=== PATIENT | female | born 1985 | race Caucasian/White ===

== ENCOUNTER 2016-10-09 06:13 | Emergency (ER) | payer BC ==
[~2016-10-09] VITALS: Ht 172.7 cm; Wt 68.0 kg
[~2016-10-09 06:13] MED LIST: CIPR500T89 PO; FLAG500T PO; PROBCAP4 PO
[2016-10-09] MEDS ORDERED: PENT500C PO (06:38)
[2016-10-09] MEDS ORDERED: FOLI5INJ2 PO (06:38)
[2016-10-09] MEDS ORDERED: NS 1,000 ML IV ONE ×2 (07:00→07:45)
[2016-10-09 07:36] LABS: BASO % 0.1 % (0.0-1.0); EOS % 0.3 % (0.0-3.0); LARGE UNSTAINED CELL % 0.3 % (0.0-4.0); LYMPH # 0.3 K/mm3 (1.5-4.5); LYMPH % 2.2 % (24.0-44.0); MEAN CORPUSCULAR HEMOGLOBIN 29.9 pg (27.0-33.0); MEAN CORPUSCULAR VOLUME 87.9 fl (80.0-96.0); MONO # 0.3 K/mm3 (0.0-0.8); MONO % 2.5 % (0.0-5.0); NEUTROPHILS # 10.9 K/mm3 (1.8-7.7); NEUTROPHILS % 94.7 % (36.0-66.0); PLATELET COUNT, AUTOMATED 239 k/mm3 (150-450); WHITE BLOOD COUNT 11.5 K/mm3 (4.0-10.0)
[2016-10-09] MEDS ORDERED: METOCLOPRAMIDE INJ 10MG/2ML VIAL (J2765) IV ONE (07:45)
[2016-10-09 07:52] LABS: ALBUMIN 4.4 GM/DL (3.2-5.2); ALBUMIN/GLOBULIN RATIO 1.33 (1.00-1.93); ALKALINE PHOSPHATASE 44 U/L (45-117); ALT/SGPT 20 U/L (12-78); AMYLASE 38 U/L (25-115); ANION GAP 10 MEQ/L (8-16); AST/SGOT 15 U/L (15-37); BILIRUBIN,DIRECT 0.2 MG/DL (0.0-0.2); BILIRUBIN,TOTAL 0.8 MG/DL (0.2-1.0); BLOOD UREA NITROGEN 12 MG/DL (7-18); CALCIUM LEVEL 8.8 MG/DL (8.5-10.1); CARBON DIOXIDE LEVEL 23 MEQ/L (21-32); CHLORIDE LEVEL 108 MEQ/L (98-107); CREATININE FOR GFR 0.94 MG/DL (0.55-1.02); GLOMERULAR FILTRATION RATE > 60.0 (>60); GLUCOSE, FASTING 114 MG/DL (70-105); HCG, SERUM QUANTITATIVE 66 MIU/ML; POTASSIUM SERUM 4.3 MEQ/L (3.5-5.1); SODIUM LEVEL 141 MEQ/L (136-145); TOTAL PROTEIN 7.7 GM/DL (6.4-8.2)
[2016-10-09] MEDS ORDERED: ACETAMINOPHEN TAB 650MG DOSE (2X325MG) PO ONE (08:45)
--- NOTE | 2016-10-09 09:47 | REP ---
OBSTETRIC SONOGRAPHY: HISTORY: HCG level 66. Irregular menstrual bleeding. FINDINGS: Transabdominal and transvaginal scanning are performed. Uterus is normal in size and empty. Its dimensions of 6.9 x 2.7 x 4.4 cm. Endometrial echo is somewhat thickened although fairly homogeneous, measuring 1.1 cm. No intrauterine gestational sac is seen. No free fluid is seen in the cul-de-sac. Normal ovaries are observed bilaterally. The right ovary measures 2.7 x 1.7 x 2.8 cm. Left ovary dimensions are 4.6 x 2.9 x 3.1 cm. There is a 1.7 cm cystic area in the left ovary may be a corpus luteum. IMPRESSION: Normal size empty uterus with a somewhat thickened endometrium. No IUP seen. No adnexal mass or free fluid. Nonspecific sonographic findings. Clinical and possibly sonographic followup advised. Signed by Juno Tam MD 10/09/2016 05:19 P
[2016-10-09] MEDS ORDERED: NS 500 ML IV ONE (10:30)
[2016-10-09] MEDS ORDERED: ZOFR4TAB3 PO (11:03)
[2016-10-09 11:22] VITALS: BP 101/56
== END 2016-10-09 11:23 | disposition home or self-care (01) ==
LOC: M ED 10:35
DX: O99.89 Other specified diseases and conditions complicating pregnancy, childbirth and the puerperium (principal); R11.2 Nausea with vomiting, unspecified; R19.7 Diarrhea, unspecified; Z87.19 Personal history of other diseases of the digestive system; Z79.899 Other long term (current) drug therapy
CPT/HCPCS: 76801; 76817; 80048; 80076; 81001; 82150; 83690; 84702; 85025; 87086; 93976; 96374; 99283; J2765

== ENCOUNTER → 2016-10-11 | Outpatient (CLI) | payer BC ==
[~2016-10-11] MED LIST changes: +FOLI5INJ2 PO; +PENT500C PO; +ZOFR4TAB3 PO
== END ==
LOC: M LAB 13:43
PROVIDERS: ATTEND Family Medicine
DX: Z36 Encounter for antenatal screening of mother (principal); Z3A.01 Less than 8 weeks gestation of pregnancy

== ENCOUNTER → 2016-10-16 | Outpatient (REF) | payer BC | LOC: M SFHCCLAY 11:21 | PROVIDERS: ATTEND Family Medicine | DX: Z3A.01 Less than 8 weeks gestation of pregnancy (principal); R11.2 Nausea with vomiting, unspecified; Z53.8 Procedure and treatment not carried out for other reasons ==

== ENCOUNTER → 2016-11-17 | Outpatient (REF) | payer BC | LOC: M SFHCCLAY 16:29 | PROVIDERS: ATTEND Family Medicine | DX: D22.61 Melanocytic nevi of right upper limb, including shoulder (principal) ==

== ENCOUNTER → 2016-12-29 | Outpatient (REF) | payer BC | LOC: M LAB REF 10:59 | PROVIDERS: ATTEND Advanced Practice Midwife | DX: Z36 Encounter for antenatal screening of mother (principal); Z3A.00 Weeks of gestation of pregnancy not specified ==

== ENCOUNTER → 2017-01-16 | Outpatient (CLI) | payer BC ==
--- NOTE | 2017-01-16 07:48 | REP ---
Clinical: Anatomical evaluation. Comparison: 10/09/2016 . Findings: Examination demonstrates a single live intrauterine in cephalic presentation. motion is identified by technologist. Placenta is noted anteriorly and grade zero without evidence for placenta previa or abruption. Amniotic fluid volume is normal. Cervix measures 3.6 cm in length and appears closed. No evidence for nuchal cord. Gestational age by LMP 18 weeks 1 day with MARTIR 06/18/2017 . Gestational age by current measurements 18 weeks 4 days with MARTIR 06/15/2017 . FHR equals 136 beats per minute. BPD 4.1 cm 18 weeks 4 days HC 15.3 cm 18 weeks 2 days AC 13.3 cm 18 weeks 6 days FL 2.7 cm 18 weeks 2 days HL 2.8 cm 19 weeks 1 day HC/AC ratio 1.15 Estimated weight 244 grams ( 63rd percentile). Anatomical assessment demonstrates normal structures including cranium, choroid plexus, cavum, cerebellum/posterior fossa, facial features, lungs, four-chamber heart/ventricular outflow tracts, diaphragm, stomach, cord insertion/three-vessel cord, kidneys/bladder, spine, and extremities. Impression: Single live intrauterine in cephalic presentation demonstrating appropriate interval growth. Anatomical assessment is complete and normal. Signed by Wenceslao Mendoza MD 01/16/2017 07:40 A
== END ==
LOC: M RAD 06:19
PROVIDERS: ATTEND Advanced Practice Midwife
DX: Z34.82 Encounter for supervision of other normal pregnancy, second trimester (principal); Z3A.18 18 weeks gestation of pregnancy

== ENCOUNTER → 2017-03-31 | Outpatient (CLI) | payer BC ==
[~2017-03-31] MED LIST changes: +CIPR-249 PO; -CIPR500T89 PO
[2017-03-31 13:51] LABS: MEAN CORPUSCULAR HEMOGLOBIN 30.4 pg (27.0-33.0); MEAN CORPUSCULAR HGB CONC 34.2 g/dl (32.0-36.5); RED CELL DISTRIBUTION WIDTH 12.1 % (11.5-14.5); WHITE BLOOD COUNT 12.4 K/mm3 (4.0-10.0)
== END ==
LOC: M SMT 10:43
PROVIDERS: ATTEND Advanced Practice Midwife
DX: Z36 Encounter for antenatal screening of mother (principal); Z3A.00 Weeks of gestation of pregnancy not specified
CPT/HCPCS: 36415; 82950; 85027; 86803; 86850; 86900; 86901; J2790

== ENCOUNTER → 2017-04-07 | Outpatient (CLI) | payer BC | LOC: M LAB 08:04 | PROVIDERS: ATTEND Advanced Practice Midwife | DX: Z36 Encounter for antenatal screening of mother (principal); Z3A.00 Weeks of gestation of pregnancy not specified ==

== ENCOUNTER → 2017-05-20 | Outpatient (REF) | payer BC | LOC: M LAB REF 12:44 | PROVIDERS: ATTEND Obstetrics & Gynecology | DX: Z36.85 Encounter for antenatal screening for Streptococcus B (principal); Z3A.00 Weeks of gestation of pregnancy not specified ==

== ENCOUNTER 2017-06-12 02:35 | Inpatient (IN) | payer BC ==
[~2017-06-12] VITALS: Ht 172.7 cm; Wt 87.0 kg
[2017-06-12] VITALS (35 sets, daily range): BP systolic 103–144; BP diastolic 56–83
[2017-06-12] MEDS ORDERED: [UNRECOGNIZED DRUG - CODE] PO (04:37)
[2017-06-12 04:47] LABS: MEAN CORPUSCULAR HEMOGLOBIN 29.9 pg (27.0-33.0); MEAN CORPUSCULAR HGB CONC 33.7 g/dl (32.0-36.5); MEAN CORPUSCULAR VOLUME 88.7 fl (80.0-96.0); PLATELET COUNT, AUTOMATED 263 10^3/uL (150-450); RED CELL DISTRIBUTION WIDTH 12.2 % (11.5-14.5); WHITE BLOOD COUNT 16.3 10^3/uL (4.0-10.0)
--- NOTE | 2017-06-12 05:10 | HPE ---
DATE OF ADMISSION: 06/12/2017 HISTORY OF PRESENT ILLNESS: A 31-year-old 1, para 0 female at 39 and 1/7 weeks gestation by last menstrual period (LMP) consistent with an 11-week ultrasound, estimated date of confinement (EDC) 06/18/2017, presents with spontaneous loss of fluid per vagina at 1 a.m. the morning of admission. Her contractions began to increase shortly thereafter. She denies vaginal bleeding. The leakage continued. COURSE: The patient initiated care at 15 weeks gestation on 12/29/2016. Her initial blood pressure was 120/68, weight 161 pounds. Her course was unremarkable. MEDICAL HISTORY: Ulcerative colitis. SURGICAL HISTORY: Colonoscopy. ALLERGIES: No known drug allergies. MEDICATIONS: 1. Pentasa 500 mg. 2. vitamins. SOCIAL HISTORY: The patient is . She denies cigarettes, alcohol or drug use. She lives in [place]. FAMILY HISTORY: Noncontributory. PHYSICAL EXAMINATION: VITAL SIGNS: Blood pressure 118/72. GENERAL: She appears mildly uncomfortable. HEAD/NECK: Normal. LUNGS: Clear. HEART: Regular rate and rhythm. ABDOMEN: Nontender, gravid. heart tones category one. STERILE VAGINAL EXAM: Grossly ruptured and clear fluid noted. Nitrazine positive. Cervix is 3 cm, 100% effaced, -2 station. Vertex. Contractions every 3-4 minutes. EXTREMITIES: Nontender. LABORATORY DATA: Blood type A negative. Rubella immune. RPR nonreactive. GBS negative on 05/20/2017. ASSESSMENT: A 31-year-old 1 para 0 female at 39-1/7 weeks who presents with spontaneous rupture of membranes in labor. The patient is admitted on 06/12/2017.
[2017-06-12] MEDS ORDERED: FENTANYL 2MCG/ML ROPIVACAINE 0.2% IN 0.9% NACL 200ML IVBAG As Ordered ONE (05:33)
[2017-06-12] MEDS ORDERED: REFRIGERATOR IV KEYS XX PRN (06:00)
[2017-06-12] MEDS ORDERED: FENTANYL/ROPIVACAINE/NACL BAG 200 ML EPIDURAL SCH (06:00)
[2017-06-12] MEDS ORDERED: diphenhydrAMINE INJ 50MG/ML VIAL (J1200) IV PRN (06:00)
[2017-06-12] MEDS ORDERED: LACTATED RINGER'S 1000 ML IV PRN (06:00)
[2017-06-12] MEDS ORDERED: ePHEDrine SULFATE 25 MG/5 ML(5MG/ML) SYRINGE IV PRN (06:00)
[2017-06-12] MEDS ORDERED: EPIDURAL/PCA KEYS XX PRN (06:00)
[2017-06-12] MEDS ORDERED: NALOXONE INJ 0.4 MG/1 ML VIAL (J2310) IV PRN (06:00)
[2017-06-12] MEDS ORDERED: EPIDURAL COMMENT XX SCH (06:00)
[2017-06-12] MEDS ORDERED: ONDANSETRON 4MG/2ML VIAL (J2405) IV PRN (06:00)
[2017-06-12] MEDS: PRENATAL VITAMINS CHEWABLE TABLET PO SCH (09:00)
[2017-06-12] MEDS ORDERED: OXYTOCIN 30 UNITS IN 0.9% NaCl 500ML IV BAG (J2590) As Ordered ONE (10:11)
[2017-06-12] MEDS ORDERED: OXYTOCIN DRIP 30 UNITS in APPROPRIATE DILUENT 1 EA IV SCH (11:37)
[2017-06-12] MEDS ORDERED: DIBUCAINE 1% OINTMENT 30GM TOP PRN (11:45)
[2017-06-12] MEDS ORDERED: MEASLES,MUMPS,RUBELLA VACCINE INJ (MMR-II) (90707) SC SCH (11:45)
[2017-06-12] MEDS ORDERED: ACETAMINOPHEN 500 MG TAB PO PRN (11:45)
[2017-06-12] MEDS ORDERED: RHOGAM 300 MCG (1500 IU) INJ (J2790) IM SCH (11:45)
[2017-06-12] MEDS ORDERED: ANUSOL HC CREAM 30GM TOP PRN (11:45)
[2017-06-12] MEDS ORDERED: DOCUSATE SODIUM 100 MG CAP PO PRN (11:45)
[2017-06-12] MEDS ORDERED: IBUPROFEN 800 MG TAB PO PRN (11:45)
[2017-06-12] MEDS ORDERED: METHYLERGONOVINE MALEATE 0.2 MG TAB PO PRN (11:45)
[2017-06-12] MEDS ORDERED: MOM 30ML SUSPENSION UDC PO PRN (11:45)
--- NOTE | 2017-06-12 16:55 | PAIN ---
DATE: 06/12/2017 TIME OF : 10:35. GENDER: Female. SCORES: 8 and 9. WEIGHT: 7 pounds 9 ounces, or 3440 grams. ANESTHESIA: Epidural. LACERATIONS: First-degree midline laceration with a right labial laceration. ESTIMATED BLOOD LOSS: 300 mL. COUNTS: There were five laparotomy sponges accounted for prior to and after delivery. One sharp removed from the delivery field. DELIVERY NOTE: On 06/12/2017 at 10:35, Mrs. English, a 31-year-old 1, now para 1, had a spontaneous vaginal delivery of a live-born female infant, scores 8 and 9. Weight was 7 pounds 9 ounces, 3440 grams. Head was delivered left occiput anterior (KIMBERLY) followed by delivery of right anterior shoulder, left posterior shoulder, and corpus. was then handed to mother with a good cry. Cord was clamped times two and was cut. Cord blood was then obtained. Placenta was then drained and delivered grossly intact. A pre-mix bag of 500 mL of normal saline with 30 units of Pitocin was then bolused along with uterine massage until the uterus was firm. On inspection there was a first- degree laceration with a right labial laceration,both repaired with 3-0 Vicryl Rapide. On reinspection, cervix, vagina, and perineum were grossly intact, hemostatic. Mother and baby are recovering in stable condition. The couple has decided to name their daughter MARGARITA
[2017-06-13 05:47] VITALS: BP 129/70
[2017-06-13] MEDS: PRENATAL VITAMINS CHEWABLE TABLET PO SCH (08:40)
[2017-06-13 18:27] VITALS: BP 110/61
[2017-06-14 06:00] VITALS: BP 119/57
[2017-06-14] MEDS: PRENATAL VITAMINS CHEWABLE TABLET PO SCH (09:13)
[2017-06-14] MEDS ORDERED: PRENTAB9 PO (11:24)
[2017-06-14] MEDS ORDERED: ACET50TA PO (11:25)
[2017-06-14] MEDS ORDERED: IBUP-1114 PO (11:25)
[2017-06-14] MEDS ORDERED: MOM30SS PO (11:26)
[2017-06-14] MEDS ORDERED: COLA100C5 PO (11:26)
== END 2017-06-14 13:32 | disposition home or self-care (01) | DRG 560 ==
LOC: M LDO 02:35 → M LDI 03:37 → M OBS 14:30
PROVIDERS: ADMIT Specialist; ATTEND Obstetrics & Gynecology
PROC: 10E0XZZ Delivery of Products of Conception, External Approach (ICD-10-PCS; principal; 2017-06-12)
PROC: 0HQ9XZZ Repair Perineum Skin, External Approach (ICD-10-PCS; 2017-06-12)
DX: O70.0 First degree perineal laceration during delivery (principal); Z3A.39 39 weeks gestation of pregnancy; Z37.0 Single live birth

== ENCOUNTER → 2019-06-07 | Outpatient (REF) | payer BC ==
[~2019-06-07] MED LIST changes: +COLA100C5 PO; +IBUP-1114 PO; +MAPA500T2 PO; +MOM30SS PO; +PRENTAB9 PO; +ZOFR4TAB14 PO; -ZOFR4TAB3 PO; +[UNRECOGNIZED DRUG - CODE] PO
== END ==
LOC: M LAB REF 17:36
PROVIDERS: ATTEND Dermatology
DX: D48.9 Neoplasm of uncertain behavior, unspecified (principal)

== ENCOUNTER → 2019-07-14 | Outpatient (REF) | payer BC | LOC: M LAB REF 17:31 | PROVIDERS: ATTEND Dermatology | DX: I78.1 Nevus, non-neoplastic (principal) ==

== ENCOUNTER → 2022-09-23 | Outpatient (REF) | payer BC ==
[2022-09-23 17:42] LABS: BASO # 0.1 10^3/uL (0.0-0.2); BASO % 1.4 % (0.0-1.0); EOS # 0.2 10^3/uL (0.0-0.5); EOS % 2.6 % (0.0-3.0); HEMATOCRIT 39.1 % (36.0-47.0); HEMOGLOBIN 12.4 g/dl (12.0-15.5); LYMPH # 2.5 10^3/uL (1.5-5.0); LYMPH % 38.5 % (24.0-44.0); MEAN CORPUSCULAR HEMOGLOBIN 27.3 pg (27.0-33.0); MEAN CORPUSCULAR HGB CONC 31.7 g/dl (32.0-36.5); MEAN CORPUSCULAR VOLUME 86.1 fl (80.0-96.0); MONO # 0.7 10^3/uL (0.0-0.8); MONO % 10.8 % (2.0-8.0); NEUTROPHILS % 46.4 % (36.0-66.0); PLATELET COUNT, AUTOMATED 286 10^3/uL (150-450); RED BLOOD COUNT 4.54 10^6/uL (4.00-5.40); WHITE BLOOD COUNT 6.6 10^3/uL (4.0-10.0)
[2022-09-23 17:45] LABS: ALKALINE PHOSPHATASE 35 U/L (46-116); ALT/SGPT 11 U/L (7.0-40); AST/SGOT 16 U/L (<34); BILIRUBIN,TOTAL 0.5 MG/DL (0.3-1.2); BLOOD UREA NITROGEN 16 MG/DL (9-23); CALCIUM LEVEL 8.8 MG/DL (8.5-10.1); CARBON DIOXIDE LEVEL 30 MMOL/L (20-31); CHLORIDE LEVEL 109 MMOL/L (98-107); CHOLESTEROL LEVEL 152 MG/DL (<200); CHOLESTEROL RISK RATIO 2.76 (<5); CREATININE FOR GFR 0.93 MG/DL (0.55-1.30); GLOMERULAR FILTRATION RATE > 60.0 (>60); GLUCOSE, FASTING 78 MG/DL (60-100); HDL CHOLESTEROL 54.9 MG/DL (>40); LDL CHOLESTEROL 84.3 MG/DL (<100); NON-HDL-C 97 MG/DL; POTASSIUM SERUM 4.1 MMOL/L (3.5-5.1); SODIUM LEVEL 140 MMOL/L (136-145); TOTAL PROTEIN 6.9 G/DL (5.7-8.2); TRIGLYCERIDES LEVEL 64 MG/DL (<150)
[2022-09-23 17:46] LABS: FREE T4 0.84 NG/DL (0.89-1.76)
[2022-09-23 17:47] LABS: THYROID STIMULATING HORMONE 2.442 uIU/ML (0.55-4.78); TOTAL 25(OH) VITAMIN D 30.1 NG/ML (20.0-100.0); TOTAL T3 99.2 NG/DL (60.0-181.0)
[2022-09-23 20:27] LABS: HEMOGLOBIN A1c 5.6 % (4.0-6.0)
[2022-09-25 04:07] LABS: LDL DIRECT 87 mg/dL (0-99)
== END ==
LOC: M LABDRAWC 17:09
PROVIDERS: ATTEND Obstetrics & Gynecology
DX: N92.6 Irregular menstruation, unspecified (principal)

== ENCOUNTER → 2023-01-06 | Outpatient (REF) | payer BC ==
[2023-01-06 19:16] LABS: FREE T4 0.93 NG/DL (0.89-1.76)
[2023-01-06 19:17] LABS: THYROID STIMULATING HORMONE 1.318 uIU/ML (0.55-4.78)
== END ==
LOC: M LABDRAWC 17:34
PROVIDERS: ATTEND Obstetrics & Gynecology
DX: R94.6 Abnormal results of thyroid function studies (principal)

== ENCOUNTER → 2023-01-06 | Outpatient (REF) | payer BC | LOC: M SFHCCLAY 15:09 | PROVIDERS: ATTEND Nurse Practitioner Family | DX: J02.9 Acute pharyngitis, unspecified (principal) ==

== ENCOUNTER → 2023-07-06 | Outpatient (REF) | payer BC ==
[2023-07-06 17:37] LABS: HEMATOCRIT 34.4 % (36.0-47.0); MEAN CORPUSCULAR HEMOGLOBIN 27.2 pg (27.0-33.0); MEAN CORPUSCULAR VOLUME 85.1 fl (80.0-96.0); PLATELET COUNT, AUTOMATED 336 10^3/uL (150-450); RED BLOOD COUNT 4.04 10^6/uL (4.00-5.40); WHITE BLOOD COUNT 7.2 10^3/uL (4.0-10.0)
[2023-07-06 17:43] LABS: ALKALINE PHOSPHATASE 38 U/L (46-116); ALT/SGPT 12 U/L (7.0-40); AST/SGOT 10 U/L (<34); BILIRUBIN,TOTAL 0.5 MG/DL (0.3-1.2); BLOOD UREA NITROGEN 15 MG/DL (9-23); CALCIUM LEVEL 8.9 MG/DL (8.5-10.1); CARBON DIOXIDE LEVEL 27 MMOL/L (20-31); CHLORIDE LEVEL 106 MMOL/L (98-107); GLOMERULAR FILTRATION RATE > 60.0 (>60); GLUCOSE, FASTING 96 MG/DL (60-100); IRON (FE) 20 UG/DL (50-170); POTASSIUM SERUM 3.8 MMOL/L (3.5-5.1); SODIUM LEVEL 139 MMOL/L (136-145); TOTAL PROTEIN 7.1 G/DL (5.7-8.2)
[2023-07-06 17:44] LABS: THYROID STIMULATING HORMONE 2.851 uIU/ML (0.55-4.78); TOTAL T3 127.1 NG/DL (60.0-181.0)
[2023-07-06 17:55] LABS: HEMOGLOBIN A1c 5.3 % (4.0-6.0)
== END ==
LOC: M SFHCCLAY 13:26
PROVIDERS: ATTEND Family Medicine
DX: R73.01 Impaired fasting glucose (principal); R79.89 Other specified abnormal findings of blood chemistry; L65.9 Nonscarring hair loss, unspecified

== ENCOUNTER → 2024-07-07 | Outpatient (REF) | payer BC ==
[2024-07-07 13:05] LABS: HEMATOCRIT 40.9 % (36.0-47.0); HEMOGLOBIN 13.5 g/dl (12.0-15.5); MEAN CORPUSCULAR HEMOGLOBIN 29.6 pg (27.0-33.0); MEAN CORPUSCULAR VOLUME 89.7 fl (80.0-96.0); PLATELET COUNT, AUTOMATED 274 10^3/uL (150-450); RED BLOOD COUNT 4.56 10^6/uL (4.00-5.40); WHITE BLOOD COUNT 5.4 10^3/uL (4.0-10.0)
[2024-07-07 13:21] LABS: HEMOGLOBIN A1c 5.1 % (4.0-6.0)
[2024-07-07 13:40] LABS: ALKALINE PHOSPHATASE 41 U/L (35-104); ALT/SGPT 23 U/L (7.0-40); AST/SGOT 15 U/L (<34); BILIRUBIN,TOTAL 0.5 MG/DL (0.3-1.2); BLOOD UREA NITROGEN 14 MG/DL (9-23); CALCIUM LEVEL 9.8 MG/DL (8.5-10.1); CARBON DIOXIDE LEVEL 27 MMOL/L (20-31); CHLORIDE LEVEL 106 MMOL/L (98-107); CREATININE FOR GFR 0.85 MG/DL (0.55-1.30); GLOMERULAR FILTRATION RATE > 60.0 (>60); GLUCOSE, FASTING 79 MG/DL (60-100); IRON (FE) 106 UG/DL (50-170); POTASSIUM SERUM 4.2 MMOL/L (3.5-5.1); SODIUM LEVEL 143 MMOL/L (136-145); TOTAL PROTEIN 7.5 G/DL (5.7-8.2)
[2024-07-07 13:42] LABS: FREE T4 0.92 NG/DL (0.89-1.76)
== END ==
LOC: M SFHCCLAY 09:32
PROVIDERS: ATTEND Family Medicine
DX: R73.01 Impaired fasting glucose (principal); D50.9 Iron deficiency anemia, unspecified; R79.89 Other specified abnormal findings of blood chemistry

== ENCOUNTER → 2024-11-10 | Outpatient (CLI) | payer BC | LOC: M RAD 13:22 | PROVIDERS: ATTEND Surgery | DX: D17.1 Benign lipomatous neoplasm of skin and subcutaneous tissue of trunk (principal) ==

== ENCOUNTER → 2025-03-09 | Outpatient (CLI) | payer BC ==
[~2025-03-09] MED LIST changes: +PROHANCE 279.3MG/ML 15ML VIAL As Ordered ONE
== END ==
LOC: M RAD 15:44
PROVIDERS: ATTEND Plastic Surgery Surgery of the Hand
DX: D17.1 Benign lipomatous neoplasm of skin and subcutaneous tissue of trunk (principal)
CPT/HCPCS: 71552; A9576

== ENCOUNTER → 2025-03-21 | Outpatient (REF) | payer BC ==
[~2025-03-21] MED LIST changes: -PROHANCE 279.3MG/ML 15ML VIAL As Ordered ONE
== END ==
LOC: M SFHCDERM 17:00
PROVIDERS: ATTEND Physician Assistant
DX: L08.9 Local infection of the skin and subcutaneous tissue, unspecified (principal)

== ENCOUNTER → 2025-06-12 | Outpatient (CLI) | payer BC ==
[~2025-06-12] MED LIST changes: +CITA10TA7 PO
[2025-06-12 18:59] LABS: CALCIUM LEVEL 9.3 MG/DL (8.5-10.1); CARBON DIOXIDE LEVEL 29.0 MMOL/L (20-31); CHLORIDE LEVEL 105.0 MMOL/L (98-107); CREATININE FOR GFR 0.92 MG/DL (0.55-1.30); GLOMERULAR FILTRATION RATE 81.2 (>60); PLATELET COUNT, AUTOMATED 263 10^3/uL (150-450); POTASSIUM SERUM 3.8 MMOL/L (3.5-5.1); SODIUM LEVEL 141.0 MMOL/L (136-145)
== END ==
LOC: M LABDRAWC 09:52
PROVIDERS: ATTEND Physician Assistant
DX: D17.1 Benign lipomatous neoplasm of skin and subcutaneous tissue of trunk (principal)

== ENCOUNTER 2025-06-15 06:04 | Day surgery (SDC) | payer BC ==
[~2025-06-15] VITALS: Ht 172.7 cm; Wt 76.2 kg
[2025-06-15] MEDS: SCOPOLAMINE 1MG TRANSDERMAL PATCH TOP ONE (06:50)
[2025-06-15] MEDS ORDERED: LR 1,000 ML IV SCH (06:50)
[2025-06-15] MEDS: GABAPENTIN 300 MG CAP PO ONE (06:50)
[2025-06-15] MEDS: LIDOCAINE 2% W/EPINEPHrine 20 ML VIAL **PRES FREE As Ordered ONE (07:07)
[2025-06-15] MEDS ORDERED: LIDOCAINE 2% 100 MG/5 ML SDV (FOR ANES.) As Ordered ONE (07:24)
[2025-06-15] MEDS ORDERED: dexAMETHasone 4 MG/ML 1 ML VIAL As Ordered ONE (07:24)
[2025-06-15] MEDS ORDERED: ONDANSETRON 4MG/2ML VIAL As Ordered ONE (07:24)
[2025-06-15] MEDS ORDERED: MIDAZOLAM INJ 2 MG/2 ML VIAL As Ordered ONE (07:25)
[2025-06-15] MEDS ORDERED: dexmedeTOMIDine (4 MCG/ML) 200 MCG/50 ML BTL As Ordered ONE (07:25)
[2025-06-15] MEDS ORDERED: ROCURONIUM BROMIDE 50MG/5ML VIAL As Ordered ONE (07:43)
[2025-06-15] MEDS: ceFAZolin SOD 2 GM IV ONCE IV ONE (08:05)
[2025-06-15] MEDS: GENTAMICIN SULF 80 MG/2 ML VIAL As Ordered ONE (08:24)
[2025-06-15] MEDS ORDERED: SUGAMMADEX SODIUM 200 MG/2 ML VIAL As Ordered ONE (08:32)
[2025-06-15] MEDS ORDERED: ACETAMINOPHEN 1000MG/100ML IV BAG As Ordered ONE (08:32)
[2025-06-15] MEDS ORDERED: PHENYLephrine 500MCG 5ML (100MCG/ML) SYRINGE As Ordered ONE (08:36)
[2025-06-15] MEDS ORDERED: GLYCOPYRROLATE INJ 0.2 MG/ML 2 ML VIAL As Ordered ONE (08:43)
[2025-06-15] MEDS ORDERED: ONDANSETRON 4MG/2ML VIAL IV PRN (08:50)
[2025-06-15] MEDS ORDERED: HYDROMORPHONE HCL 0.5 MG/0.5 ML SYRINGE IV PRN (08:50)
[2025-06-15] MEDS ORDERED: traMADol 50 MG TAB PO ONE (08:50)
[2025-06-15] MEDS: FAMOTIDINE 20 MG/2 ML VIAL As Ordered ONE (08:59)
[2025-06-15] MEDS: FAMOTIDINE 20 MG/2 ML VIAL IVP ONE (08:59)
[2025-06-15 09:47] VITALS: BP 112/70; TEMP 96.9; O2SAT 97
[2025-06-15] MEDS ORDERED: FAMOTIDINE 20 MG/2 ML VIAL IVP ONE (14:55)
[2025-06-15] MEDS ORDERED: GABAPENTIN 300 MG CAP PO ONE (14:55)
[2025-06-15] MEDS ORDERED: SCOPOLAMINE 1MG TRANSDERMAL PATCH TOP ONE (14:55)
== END 2025-06-15 10:20 | disposition home or self-care (01) ==
LOC: M SDC 06:04
PROVIDERS: ATTEND Plastic Surgery Surgery of the Hand
DX: D17.1 Benign lipomatous neoplasm of skin and subcutaneous tissue of trunk (principal); F41.9 Anxiety disorder, unspecified; Z79.899 Other long term (current) drug therapy
CPT/HCPCS: 21931; 81025; 88307; J0131; J0665; J0666; J0688; J1100; J1308; J1580; J1596; J2250; J2371; J2405; J3010